=== PATIENT | female | born 1990 | race Asian ===

== ENCOUNTER 2019-07-21 07:35 | Outpatient (CLI) | payer BC ==
--- NOTE | 2019-07-21 10:45 | NM ---
HEPATOBILIARY SCAN: HISTORY:Nausea RADIOPHARMACEUTICAL: 5.3 mCi Technetium 99m Mebrofenin injected intravenously FINDINGS: There is normal tracer extraction by the liver with normal excretion into the biliary tracts and smal l bowel loops and normal filling of the gallbladder. The calculated gallbladder ejection fraction following an oral fatty meal measures 57%. IMPRESSION:Normal exam.
== END 2019-07-21 07:36 | disposition home or self-care (01) ==
LOC: NM 07:35
PROVIDERS: ATTEND Internal Medicine Gastroenterology
DX: E73.9 Lactose intolerance, unspecified (principal); R11.0 Nausea; R93.5 Abnormal findings on diagnostic imaging of other abdominal regions, including retroperitoneum; B96.81 Helicobacter pylori [H. pylori] as the cause of diseases classified elsewhere
CPT/HCPCS: 78227; A9537

== ENCOUNTER 2019-07-23 08:55 | Outpatient (CLI) | payer BC ==
--- NOTE | 2019-07-23 09:44 | RAD ---
UPPER GI: HISTORY: Positive H. pylori. Evaluate for gastric ulcers. Nausea. COMPARISON: None. 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 The thoracic esophagus has a normal course and caliber. Adequate gastric distention. No evidence of a filling defect. No evidence of obstruction. Duodenum and proximal small bowel loops are unremarkable. IMPRESSION: Unremarkable exam. No evidence of a persistent filling defect in the gastric mucosa to suggest gastri c ulceration. Transcribed Date/Time: 07/23/2019 9:52 AM
== END 2019-07-23 08:56 | disposition home or self-care (01) ==
LOC: RAD 08:55
PROVIDERS: ATTEND Internal Medicine Gastroenterology
DX: E73.9 Lactose intolerance, unspecified (principal); R93.5 Abnormal findings on diagnostic imaging of other abdominal regions, including retroperitoneum; B96.81 Helicobacter pylori [H. pylori] as the cause of diseases classified elsewhere; R11.0 Nausea
CPT/HCPCS: 74247